=== PATIENT | female | born 1955 ===

== ENCOUNTER 2017-09-29 16:08 | Inpatient (IN) | payer MEDICAID ==
[2017-09-29 16:09] VITALS: BMI 34.2
[2017-09-29] MEDS ORDERED: Naloxone 0.4 mg/ml Inj (Adult) ONE (16:17)
[2017-09-29] MEDS ORDERED: Sodium Chloride 0.9% 1,000 ML IV ONE ×2 (16:22→17:04)
[2017-09-29] MEDS ORDERED: Naloxone 0.4 mg/ml Inj (Adult) IVP STA (16:22)
--- NOTE | 2017-09-29 16:22 | C.PDOC ---
History Of Present Illness HX LIMITED DUE TO CLINICAL CONDITION 62-YEAR-OLD FEMALE, PMHx includes chronic pain, fibromyalgia and lupus on Percocet, IS BROUGHT TO THE EMERGENCY DEPARTMENT FROM PAIN CLINIC. PATIENT APPEARED TO BE OBTUNDED WITH APPARENT NARCOTIC INTOXICATION. NO MEDS WERE GIVEN EN ROUTE. PATIENT HAD PERCOCET PRESCRIPTION FILLED RECENTLY, WHICH WAS EMPTY TODAY. Time Seen by Provider: 09/29/17 16:21 History Per: Patient, EMS Past Medical History Reviewed: Historical Data, Nursing Documentation, Vital Signs Vital Signs: Last Vital Signs Temp 97.9 F 09/29/17 16:22 Pulse 73 09/29/17 16:22 Resp 15 09/29/17 16:22 BP 76/46 L 09/29/17 16:22 Pulse Ox 98 09/29/17 16:22 - Medical History PMH: Anxiety, Asthma, Depression, Diabetes, Fibromyalgia, HTN, Seizures, Chronic Pain Family History: States: No Known Family Hx - Social History Hx Tobacco Use: No Hx Alcohol Use: No Hx Substance Use: No - Immunization History Hx Tetanus Toxoid Vaccination: No Hx Influenza Vaccination: No Hx Pneumococcal Vaccination: No Review Of Systems Review Of Systems: ROS cannot be obtained secondary to pt's inabilty to answer questions. Physical Exam - Physical Exam Appears: Non-toxic, In Acute Distress, Other (SLEEPY BUT AROUSABLE TO DEEP STERNAL RUB. AGONAL) Skin: Warm, Dry, No Rash Head: Atraumatic, Normacephalic Eye(s): bilateral: Other (PINPOINT) Nose: Normal Tongue: Normal Appearing Lips: Normal Appearing Neck: Normal ROM Cardiovascular: Rhythm Regular, No Murmur Respiratory: No Accessory Muscle Use Gastrointestinal/Abdominal: Soft, No Tenderness ED Course And Treatment - Laboratory Results Result Diagrams: 09/29/17 16:47 09/29/17 16:47 ECG: Interpreted By Me ECG Rhythm: Sinus Rhythm ECG Interpretation: Abnormal Interpretation Of ECG: TWI III, AVF Rate From EC Endotracheal Intubation - Endotracheal Intubation Intubated With ETT Size: 7 Blade Type Used: Curved Indication: Airway Protection Intubated: Orally Pre-Intubation Airway Assessment: Ventilated And Oxygenated, Appears To Have A difficult Airway Medications Used During Pre-Intubation: Etomidate Paralyzed With: Succinylcholine Post-Intubation Assessment: ETT Secured AT (cm): (23), Breath Sounds Equal Bilat , Placement Confirmed Via CXR, Color Change W/End Tidal CO2 Detector, Oxygen Saturation: (100) Progress - Re-Evaluation Re-evaluation Note: 09/29/17 16:22 S/P NARCAN 1.6 MG W MIN IMPROVED ALERTNESS. IVF IN PROGRESS 09/29/17 16:30 S/P REPEAT NARCAN, NO IMPROVE. PT W PERSIST HYPOTENSION, DIAPH, POOR RESP EFFORT AND POOR GAG REFLEX. WILL INTUBATE FOR AIRWAY PROTECTION. 09/29/17 16:57 d/w dr Castaneda, R c/f icu aware of er findings will eval 09/29/17 17:[address] ODEN 09/29/17 17:40 DECR O2 SAT AFTER PT MOVEMENT DURING CLEANING. CXR REVIEWED. WILL ETT ADJUST 09/29/17 17:44 ET TUBE IN RIGHT MAINSTEM WITH COMPLETE WHITE OUT OF LEFT - Data Reviewed Data Reviewed: Lab, Diagnostic imaging, EKG, Old records - Critical Care Citical Care: Excluding Proc Time Critical Care Time: 90 minutes - Continuity of Care Discussed patient case with:: On-call PMD-pt unassigned Discussed pt. case with it systems analyst consultant/specialty: Pulmonary/Crit. Care - Scribe Statement The provider has reviewed the documentation as recorded by the Scribe (Jeferson Vincent) All medical record entries made by the Scribe were at my direction and personally dictated by me. I have reviewed the chart and agree that the record accurately reflects my personal performance of the history, physical exam, medical decision making, and the department course for this patient. I have also personally directed, reviewed, and agree with the discharge instructions and disposition.
[2017-09-29 16:57] LABS: BASO % 0.4 % (0.0-2.0); EOS # 0.3 K/uL (0.0-0.7); EOS % 3.3 % (0.0-4.0); HEMOGLOBIN 12.9 g/dL (11.0-16.0); LYMPH # 3.6 K/uL (1.0-4.3); LYMPH % 47.1 % (20.0-40.0); MEAN CELL VOLUME 84.2 fL (81.0-99.0); MEAN CORPUSCULAR HGB CONC 33.3 g/dL (33.0-37.0); MEAN PLATELET VOLUME 7.5 fL (7.2-11.7); MONO # 0.5 K/uL (0.0-0.8); MONO % 6.6 % (0.0-10.0); NEUT # 3.3 K/uL (1.8-7.0); NEUT % 42.6 % (50.0-75.0); NRBC % 0.1 % (0.0-2.0); RBC 4.6 Mil/uL (3.80-5.20); RED CELL DISTRIBUTION WIDTH 15.1 % (11.5-14.5); WHITE BLOOD COUNT 7.7 K/uL (4.8-10.8)
[2017-09-29] MEDS ORDERED: Dexmedetomidine Hydrochloride 200 MCG in Sodium Chloride 0.9% 48 ML IV PRN (17:00)
[2017-09-29] MEDS ORDERED: Etomidate 20 mg/10ml Inj IV ONE (17:00)
[2017-09-29] MEDS ORDERED: Succinylcholine Chloride 20 mg/ml Syr (5 ml) IV STA (17:00)
[2017-09-29] MEDS ORDERED: Midazolam 2 MG/2 ML VIAL IVP ONE (17:14)
[2017-09-29] MEDS ORDERED: Rocuronium 10 mg/ml (5 ml) IV ONE (17:14)
[2017-09-29] MEDS ORDERED: Midazolam 2 MG/2 ML VIAL ONE (17:17)
[2017-09-29 17:22] LABS: ALB/GLOB RATIO 1.1 (1.0-2.1); ALBUMIN 3.8 g/dL (3.5-5.0); ALT/SGPT 89 U/L (9-52); AST/SGOT 56 U/L (14-36); BLOOD UREA NITROGEN 14 mg/dL (7-17); CALCIUM 8.5 mg/dl (8.6-10.4); GFR AFRICAN-AMERICAN > 60; GFR NON-AFRICAN AMERICAN > 60
[2017-09-29 17:23] LABS: ACETAMINOPHEN < 10.0 ug/mL (10.0-30.0); SALICYLATE < 1.0 mg/dL 1
--- NOTE | 2017-09-29 17:52 | CP.PCM.CON ---
<Nunu Castaneda - Last Filed: 09/29/17 17:47> History of Present Illness - History of Present Illness History of Present Illness: 62 y/o female with pmx of chronic pain, fibromyaligia taking benzo and opoids presents to [facility] with respiratory arrest not responsive to narcan. Patietn was intubated in Er. Please see ER notes for events leading to intubation. Limited history 2nd intubation. Review of Systems - Review of Systems All systems: reviewed and no additional remarkable complaints except Review of Systems: Intubated-- limited ROS Past Patient History - Past Medical History & Family History Past Medical History?: Yes - Past Social History Smoking Status: Former Smoker - CARDIAC Hx Hypertension: Yes - PULMONARY Hx Asthma: Yes - NEUROLOGICAL Hx Seizures: Yes - ENDOCRINE/METABOLIC Hx Endocrine Disorders: Yes Hx Diabetes Mellitus Type 2: Yes Hx Systemic Lupus Erythematosus: Yes - MUSCULOSKELETAL/RHEUMATOLOGICAL Hx Musculoskeletal Disorders: Yes - PSYCHIATRIC Hx Anxiety: Yes Hx Depression: Yes Hx Substance Use: No - SURGICAL HISTORY Hx Surgeries: Yes Other/Comment: LUNG BIOPSY. EPIDURAL - ANESTHESIA Hx Anesthesia: Yes Hx Anesthesia Reactions: No Hx Malignant Hyperthermia: No Meds Allergies/Adverse Reactions: Allergies Allergy/AdvReac Type Severity Reaction Status Date / Time lactose Allergy DIARRHEA Verified 09/29/17 16:31 latex Allergy ITCHING Verified 09/29/17 16:31 Penicillins Allergy ITCHING Verified 09/29/17 16:31 contrast Allergy ITCHING Uncoded 09/29/17 16:31 seafood Allergy ITCHING Uncoded 09/29/17 16:31 - Medications Medications: Current Medications Albuterol/Ipratropium (Duoneb 3 Mg/0.5 Mg (3 Ml) Ud) 3 ml INH RQ6 AMISH Bisacodyl (Dulcolax) 10 mg NC HS PRN PRN Reason: Constipation Dexmedetomidine HCl 200 mcg/ (Sodium Chloride) 50 mls @ 5.21 mls/hr IV TITR PRN ; Protocol; 0.2 MCG/KG/HR PRN Reason: Sedation Sodium Chloride (Sodium Chloride 0.9%) 1,000 mls @ 1,000 mls/hr IV .Q1H ONE Stop: 09/29/17 18:03 Physical Exam - Constitutional Appears: No Acute Distress - Head Exam Head Exam: ATRAUMATIC, NORMAL INSPECTION - Eye Exam Eye Exam: Normal appearance - ENT Exam ENT Exam: Mucous Membranes Moist - Neck Exam Neck exam: Positive for: Normal Inspection - Respiratory Exam Respiratory Exam: Clear to Auscultation Bilateral, NORMAL BREATHING PATTERN - Cardiovascular Exam Cardiovascular Exam: REGULAR RHYTHM - GI/Abdominal Exam GI & Abdominal Exam: Soft Additional comments: obese - Extremities Exam Extremities exam: Positive for: normal inspection - Back Exam Back exam: NORMAL INSPECTION - Neurological Exam Additional comments: sedated Results - Vital Signs Recent Vital Signs: Last Vital Signs Temp 97.9 F 09/29/17 16:22 Pulse 73 09/29/17 16:22 Resp 15 09/29/17 16:22 BP 76/46 L 09/29/17 16:22 Pulse Ox 98 09/29/17 16:22 - Labs Result Diagrams: 09/29/17 16:47 09/29/17 16:47 Labs: Laboratory Results - last 24 hr 09/29/17 09/29/17 09/29/17 16:18 16:47 16:47 WBC 7.7 RBC 4.60 Hgb 12.9 Hct 38.8 MCV 84.2 MCH 28.0 MCHC 33.3 RDW 15.1 H Plt Count 245 MPV 7.5 Neut % (Auto) 42.6 L Lymph % (Auto) 47.1 H Buchanan % (Auto) 6.6 Eos % (Auto) 3.3 Baso % (Auto) 0.4 Neut # 3.3 Lymph # 3.6 Buchanan # 0.5 Eos # 0.3 Baso # 0.0 Sodium 132 Potassium 3.2 L Chloride 100 Carbon Dioxide 23 Anion Gap 13 BUN 14 Creatinine 0.8 Est GFR ( Amer) > 60 Est GFR (Non-Af Amer) > 60 POC Glucose (mg/dL) 204 H Random Glucose 165 H Calcium 8.5 L Total Bilirubin 0.7 AST 56 H ALT 89 H D Alkaline Phosphatase 159 H Total Protein 7.3 Albumin 3.8 Globulin 3.5 Albumin/Globulin Ratio 1.1 Salicylates Acetaminophen Alcohol, Quantitative < 10 09/29/17 16:47 WBC RBC Hgb Hct MCV MCH MCHC RDW Plt Count MPV Neut % (Auto) Lymph % (Auto) Buchanan % (Auto) Eos % (Auto) Baso % (Auto) Neut # Lymph # Buchanan # Eos # Baso # Sodium Potassium Chloride Carbon Dioxide Anion Gap BUN Creatinine Est GFR ( Amer) Est GFR (Non-Af Amer) POC Glucose (mg/dL) Random Glucose Calcium Total Bilirubin AST ALT Alkaline Phosphatase Total Protein Albumin Globulin Albumin/Globulin Ratio Salicylates < 1.0 Acetaminophen < 10.0 L Alcohol, Quantitative Assessment & Plan (1) Respiratory failure with hypoxia and hypercapnia Status: Acute (2) Altered mental status Status: Acute - Assessment and Plan (Free Text) Plan: Hypercapneic respiratory failuer:continue ventilation to keep sPo2 >92 and pH b/ w 7.35-7.45, continue bronchodilators -AMS: check Utox and Ct head -Ng tube -DVT ppx scds/hepairn SC is CT head neg for ICh -PUD ppx protonix -check and replace electrolytes -sedation precedex multiple diagnostic tests pendiing. Prognosis limited 2nd limited study. - Date & Time Date: 09/29/17 Time: 17:55 <Maryan Cross - Last Filed: 09/29/17 18:35> Meds - Medications Medications: Current Medications Albuterol/Ipratropium (Duoneb 3 Mg/0.5 Mg (3 Ml) Ud) 3 ml INH RQ6 AMISH Bisacodyl (Dulcolax) 10 mg NC HS PRN PRN Reason: Constipation Dexmedetomidine HCl 200 mcg/ (Sodium Chloride) 50 mls @ 5.21 mls/hr IV TITR PRN ; Protocol; 0.2 MCG/KG/HR PRN Reason: Sedation Aztreonam 2 gm/ Sodium (Chloride) 100 mls @ 200 mls/hr IVPB Q8H AMISH Vancomycin/Sodium Chloride (Vancomycin 1 Gm/Ns 200 Ml) 1 gm in 200 mls @ 133 mls/hr IVPB ONCE ONE Stop: 09/29/17 20:30 Metronidazole (Flagyl) 500 mg in 100 mls @ 100 mls/hr IVPB Q8 AMISH Potassium Chloride (Potassium Chloride 20 Meq/100 Ml) 20 meq in 100 mls @ 50 mls/hr IVPB Q2H AMISH Stop: 09/30/17 00:29 Results - Vital Signs Recent Vital Signs: Last Vital Signs Temp 97.9 F 09/29/17 16:22 Pulse 73 09/29/17 16:22 Resp 15 09/29/17 16:22 BP 76/46 L 09/29/17 16:22 Pulse Ox 98 09/29/17 16:22 - Labs Result Diagrams: 09/29/17 16:47 09/29/17 16:47 Labs: Laboratory Results - last 24 hr 09/29/17 09/29/17 09/29/17 16:18 16:47 16:47 WBC 7.7 RBC 4.60 Hgb 12.9 Hct 38.8 MCV 84.2 MCH 28.0 MCHC 33.3 RDW 15.1 H Plt Count 245 MPV 7.5 Neut % (Auto) 42.6 L Lymph % (Auto) 47.1 H Buchanan % (Auto) 6.6 Eos % (Auto) 3.3 Baso % (Auto) 0.4 Neut # 3.3 Lymph # 3.6 Buchanan # 0.5 Eos # 0.3 Baso # 0.0 Puncture Site pCO2 pO2 HCO3 ABG pH ABG Total CO2 ABG O2 Saturation ABG Base Excess Mike Test ABG Potassium A-a O2 Difference Respiratory Index Glucose Lactate Vent Mode Mechanical Rate FiO2 Tidal Volume PEEP Sodium 132 Potassium 3.2 L Chloride 100 Carbon Dioxide 23 Anion Gap 13 BUN 14 Creatinine 0.8 Est GFR ( Amer) > 60 Est GFR (Non-Af Amer) > 60 POC Glucose (mg/dL) 204 H Random Glucose 165 H Calcium 8.5 L Total Bilirubin 0.7 AST 56 H ALT 89 H D Alkaline Phosphatase 159 H Total Protein 7.3 Albumin 3.8 Globulin 3.5 Albumin/Globulin Ratio 1.1 Arterial Blood Potassium Salicylates Acetaminophen Alcohol, Quantitative < 10 09/29/17 09/29/17 16:47 18:00 WBC RBC Hgb Hct MCV MCH MCHC RDW Plt Count MPV Neut % (Auto) Lymph % (Auto) Buchanan % (Auto) Eos % (Auto) Baso % (Auto) Neut # Lymph # Buchanan # Eos # Baso # Puncture Site Rra pCO2 43 pO2 193 H HCO3 24.0 ABG pH 7.36 ABG Total CO2 25.6 ABG O2 Saturation 98.8 H ABG Base Excess -1.3 Mike Test Yes ABG Potassium 2.7 L A-a O2 Difference 324.0 Respiratory Index 1.7 Glucose 120 H Lactate 1.3 Vent Mode Prvc Mechanical Rate 18 FiO2 80.0 Tidal Volume 450 PEEP 5 Sodium 141.0 Potassium Chloride 111.0 H Carbon Dioxide Anion Gap BUN Creatinine Est GFR ( Amer) Est GFR (Non-Af Amer) POC Glucose (mg/dL) Random Glucose Calcium Total Bilirubin AST ALT Alkaline Phosphatase Total Protein Albumin Globulin Albumin/Globulin Ratio Arterial Blood Potassium 2.7 L Salicylates < 1.0 Acetaminophen < 10.0 L Alcohol, Quantitative Assessment & Plan - Assessment and Plan (Free Text) Assessment: 62F with PMH of Chronic pain, fibromyalgia taking benzodiazepine and opioids presents to [facility] with respiratory arrest not responsive to narcan. Patient was intubated in ER. Patient to be brought to ICU on PRVC. 62F present with AMS, hypercapneic respiratory failure and intubated in the ER Neuro AMS UDS CT head w/o contrast Sedation Precedex UDS drug test Oxycodon screen Cardio EKG BNP Pulm: 09/29 CXR: GI: AST/ALT 56/89 ALP 159 ID Lactic acid 09/29 ABG pH7.36, pCO2 43, pO2 193, pHCO3 24.0, lactate 1.3, PRVC 18 FiO2 80%, TV 450, PEEP 5 Metronidazole 500mg IVPB Q8H Vancomycin 1gm Q24h prophylaxis: GI protonix DVT heparin SC, SCDs
[2017-09-29] MEDS ORDERED: Vancomycin 1 GM 1 GM/250 ML BAG IVPB STA (17:59)
--- NOTE | 2017-09-29 18:13 | RAD ---
HISTORY: SP ETT ADJUST COMPARISON: Chest x-ray performed 09/29/17 TECHNIQUE: Chest, one view. FINDINGS: Endotracheal tube terminates approximately 2.5 cm above the liliya. Nasogastric tube extends to the expected location of the stomach. Examination limited by habitus and hypoinflation. LUNGS: No focal consolidation. Please note that chest x-ray has limited sensitivity for the detection of pulmonary masses. PLEURA: No significant pleural effusion identified. No definite pneumothorax . CARDIOVASCULAR: Heart size appears top normal. Atherosclerotic calcifications of the aorta. OSSEOUS STRUCTURES: No acute osseous abnormality identified. VISUALIZED UPPER ABDOMEN: Unremarkable. OTHER FINDINGS: None. IMPRESSION: Endotracheal tube terminates approximately 2.5 cm above the liliya. Nasogastric tube extends to the expected location of the stomach.
[2017-09-29] MEDS ORDERED: Propofol 10 mg/ml 1,000 MG/100 ML VIAL ONE (18:17)
[2017-09-29 18:22] LABS: ABG ALLEN TEST YES; ARTERIAL BLOOD GAS O2 SAT 98.8 % (95-98); ARTERIAL BLOOD GAS PCO2 43 mm/Hg (35-45); ARTERIAL BLOOD GAS PH 7.36 (7.35-7.45); ARTERIAL BLOOD GAS PO2 193 mm/Hg (80-100); ARTERIAL BLOOD GAS TCO2 25.6 mmol/L (22-28)
[2017-09-29] MEDS ORDERED: Propofol 10 mg/ml Inj (20 ML) IV ONE (18:36)
[2017-09-29] MEDS ORDERED: Propofol 10 mg/ml 1,000 MG/100 ML VIAL IV PRN (18:39)
[2017-09-29] MEDS ORDERED: Vancomycin 1 gm/NS 200 ml 1 GM/200 ML BAG IVPB ONE (19:00)
--- NOTE | 2017-09-29 19:05 | CT ---
PROCEDURE: CT HEAD WITHOUT CONTRAST. HISTORY: eval AMS COMPARISON: None available. TECHNIQUE: Axial computed tomography images were obtained through the head/brain without intravenous contrast. Radiation dose: Total exam DLP = 975.52 mGy-cm. This CT exam was performed using one or more of the following dose reduction techniques: Automated exposure control, adjustment of the mA and/or kV according to patient size, and/or use of iterative reconstruction technique. FINDINGS: HEMORRHAGE: No intracranial hemorrhage. BRAIN: No mass effect or edema. The leach-white matter differentiation appears intact. Please note that MRI with diffusion imaging is more sensitive in the detection of acute ischemic event. VENTRICLES: No hydrocephalus. CALVARIUM: Unremarkable. PARANASAL SINUSES: Mucosal thickening of the ethmoid air cells. MASTOID AIR CELLS: Unremarkable as visualized. No inflammatory changes. OTHER FINDINGS: Probable proptosis bilaterally. IMPRESSION: No acute intracranial pathology identified. Probable proptosis bilaterally Mucosal thickening of the ethmoid air cells. Correlate for sinusitis.
[2017-09-29 20:12] LABS: MAGNESIUM 1.5 mg/dL (1.6-2.3)
[2017-09-29 20:21] LABS: TROPONIN I 0.013 ng/mL (0.00-0.120)
[2017-09-29 20:22] LABS: PHENCYCLIDINE, UR NEGATIVE (NEGATIVE)
[2017-09-29 20:24] LABS: BARBITURATES, UR POSITIVE (NEGATIVE); BENZODIAZEPINES, UR POSITIVE (NEGATIVE); OPIATES, UR POSITIVE (NEGATIVE)
[2017-09-29] MEDS: Albuterol-Ipratrop 3 mg / 0.5 (3 ml) UD INH SCH (21:03)
[2017-09-29] MEDS: Aztreonam 2 GM in Sodium Chloride 0.9% 100 ML IVPB SCH (21:14)
[2017-09-29] MEDS: Magnesium Sulfate 1 gm in D5W 1 GM/100 ML BAG IVPB SCH ×2 (21:15→23:13)
[2017-09-29] MEDS: metroNIDAZOLE IV 500 mg/100 ml 500 MG/100 ML BAG IVPB SCH (22:13)
[2017-09-29] MEDS ORDERED: Magnesium Sulfate 1 gm in D5W 1 GM/100 ML BAG IVPB SCH (23:00)
--- NOTE | 2017-09-29 23:35 | CP.PCM.HP ---
History of Present Illness - History of Present Illness History of Present Illness: CC: Altered mental status HPI: 62 y/o obese female with pmx of chronic pain, polysubstance abuse , fibromyaligia taking benzo and opoids presents to [facility] with respiratory arrest not responsive to narcan. Patietn was intubated in Er. Please see ER notes for events leading to intubation. Limited history 2nd intubation, Pt had heroine over dose. There is no other h/o available. there is h/o previous multiple hospitalizations Present on Admission - Present on Admission Any Indicators Present on Admission: Yes Review of Systems - Review of Systems Systems not reviewed;Unavailable: Respiratory Distress, Altered Mental Status, Intubated - Constitutional Constitutional: Lethargy, Malaise - EENT Eyes: absent: As Per HPI, Blind Spots, Blurred Vision, Change in Vision, Decreased Night Vision, Diplopia, Discharge, Dry Eye, Exophthalmos, Floaters, Irritation, Itchy Eyes, Loss of Peripheral Vision, Pain, Photophobia, Requires Corrective Lenses, Sees Flashes, Spots in Vision, Tunnel Vision, Other Visual Disturbances, Loss of Vision, Other Nose/Mouth/Throat: absent: As Per HPI, Epistaxis, Nasal Congestion, Nasal Discharge, Nasal Obstruction, Nasal Trauma, Nose Pain, Post Nasal Drip, Sinus Pain, Sinus Pressure, Bleeding Gums, Change in Voice, Dental Pain, Dry Mouth, Dysphagia, Halitosis, Hoarsness, Lip Swelling, Mouth Lesions, Mouth Pain, Odynophagia, Sore Throat, Throat Swelling, Tongue Swelling, Facial Pain, Neck Pain, Neck Mass, Other Past Patient History - Past Medical History & Family History Past Medical History?: Yes - Past Social History Smoking Status: Never Smoked - CARDIAC Hx Hypertension: Yes - PULMONARY Hx Asthma: Yes - NEUROLOGICAL Hx Seizures: Yes - ENDOCRINE/METABOLIC Hx Endocrine Disorders: Yes Hx Diabetes Mellitus Type 2: Yes Hx Systemic Lupus Erythematosus: Yes - MUSCULOSKELETAL/RHEUMATOLOGICAL Hx Musculoskeletal Disorders: Yes Hx Falls: No - PSYCHIATRIC Hx Anxiety: Yes Hx Depression: Yes Hx Substance Use: No - SURGICAL HISTORY Hx Surgeries: Yes Other/Comment: LUNG BIOPSY. EPIDURAL - ANESTHESIA Hx Anesthesia: Yes Hx Anesthesia Reactions: No Hx Malignant Hyperthermia: No Has any member of the family had a problem w/ anesthesia?: No Meds Allergies/Adverse Reactions: Allergies Allergy/AdvReac Type Severity Reaction Status Date / Time lactose Allergy DIARRHEA Verified 09/29/17 16:31 latex Allergy ITCHING Verified 09/29/17 16:31 Penicillins Allergy ITCHING Verified 09/29/17 16:31 contrast Allergy ITCHING Uncoded 09/29/17 16:31 seafood Allergy ITCHING Uncoded 09/29/17 16:31 Physical Exam - Constitutional Appears: In Acute Distress Additional comments: pt is intubated - Eye Exam Eye Exam: EOMI, Normal appearance Additional comments: pinpoint pupil - ENT Exam ENT Exam: Mucous Membranes Moist, Normal Exam - Respiratory Exam Respiratory Exam: Decreased Breath Sounds - Cardiovascular Exam Cardiovascular Exam: Tachycardia, +S1, +S2 - Neurological Exam Additional comments: withdraws from pain Results - Vital Signs Recent Vital Signs: Last Vital Signs Temp 97.8 F 09/29/17 22:00 Pulse 87 09/29/17 22:00 Resp 20 09/29/17 22:00 BP 133/75 09/29/17 22:00 Pulse Ox 100 09/29/17 22:00 - Labs Result Diagrams: 09/29/17 16:47 09/29/17 16:47 Labs: Laboratory Results - last 24 hr 09/29/17 09/29/17 09/29/17 16:18 16:47 16:47 WBC 7.7 RBC 4.60 Hgb 12.9 Hct 38.8 MCV 84.2 MCH 28.0 MCHC 33.3 RDW 15.1 H Plt Count 245 MPV 7.5 Neut % (Auto) 42.6 L Lymph % (Auto) 47.1 H Keith % (Auto) 6.6 Eos % (Auto) 3.3 Baso % (Auto) 0.4 Neut # 3.3 Lymph # 3.6 Keith # 0.5 Eos # 0.3 Baso # 0.0 Puncture Site pCO2 pO2 HCO3 ABG pH ABG Total CO2 ABG O2 Saturation ABG Base Excess Mike Test ABG Potassium A-a O2 Difference Respiratory Index Glucose Lactate Vent Mode Mechanical Rate FiO2 Tidal Volume PEEP Sodium 132 Potassium 3.2 L Chloride 100 Carbon Dioxide 23 Anion Gap 13 BUN 14 Creatinine 0.8 Est GFR ( Amer) > 60 Est GFR (Non-Af Amer) > 60 POC Glucose (mg/dL) 204 H Random Glucose 165 H Lactic Acid Calcium 8.5 L Phosphorus Magnesium Total Bilirubin 0.7 AST 56 H ALT 89 H D Alkaline Phosphatase 159 H Troponin I NT-Pro-B Natriuret Pep Total Protein 7.3 Albumin 3.8 Globulin 3.5 Albumin/Globulin Ratio 1.1 Arterial Blood Potassium Salicylates Urine Opiates Screen Urine Methadone Screen Acetaminophen Ur Barbiturates Screen Ur Phencyclidine Scrn Ur Amphetamines Screen U Benzodiazepines Scrn U Oth Cocaine Metabols U Cannabinoids Screen Alcohol, Quantitative < 10 09/29/17 09/29/17 09/29/17 16:47 18:00 19:52 WBC RBC Hgb Hct MCV MCH MCHC RDW Plt Count MPV Neut % (Auto) Lymph % (Auto) Keith % (Auto) Eos % (Auto) Baso % (Auto) Neut # Lymph # Keith # Eos # Baso # Puncture Site Rra pCO2 43 pO2 193 H HCO3 24.0 ABG pH 7.36 ABG Total CO2 25.6 ABG O2 Saturation 98.8 H ABG Base Excess -1.3 Mike Test Yes ABG Potassium 2.7 L A-a O2 Difference 324.0 Respiratory Index 1.7 Glucose 120 H Lactate 1.3 Vent Mode Prvc Mechanical Rate 18 FiO2 80.0 Tidal Volume 450 PEEP 5 Sodium 141.0 Potassium Chloride 111.0 H Carbon Dioxide Anion Gap BUN Creatinine Est GFR ( Amer) Est GFR (Non-Af Amer) POC Glucose (mg/dL) Random Glucose Lactic Acid Calcium Phosphorus Magnesium Total Bilirubin AST ALT Alkaline Phosphatase Troponin I NT-Pro-B Natriuret Pep Total Protein Albumin Globulin Albumin/Globulin Ratio Arterial Blood Potassium 2.7 L Salicylates < 1.0 Urine Opiates Screen Positive H Urine Methadone Screen Negative Acetaminophen < 10.0 L Ur Barbiturates Screen Positive H Ur Phencyclidine Scrn Negative Ur Amphetamines Screen Negative U Benzodiazepines Scrn Positive U Oth Cocaine Metabols Negative U Cannabinoids Screen Negative Alcohol, Quantitative 09/29/17 09/29/17 19:52 19:52 WBC RBC Hgb Hct MCV MCH MCHC RDW Plt Count MPV Neut % (Auto) Lymph % (Auto) Keith % (Auto) Eos % (Auto) Baso % (Auto) Neut # Lymph # Keith # Eos # Baso # Puncture Site pCO2 pO2 HCO3 ABG pH ABG Total CO2 ABG O2 Saturation ABG Base Excess Mike Test ABG Potassium A-a O2 Difference Respiratory Index Glucose Lactate Vent Mode Mechanical Rate FiO2 Tidal Volume PEEP Sodium Potassium Chloride Carbon Dioxide Anion Gap BUN Creatinine Est GFR ( Amer) Est GFR (Non-Af Amer) POC Glucose (mg/dL) Random Glucose Lactic Acid 1.0 Calcium Phosphorus 3.9 Magnesium 1.5 L Total Bilirubin AST ALT Alkaline Phosphatase Troponin I 0.0130 NT-Pro-B Natriuret Pep 49.0 Total Protein Albumin Globulin Albumin/Globulin Ratio Arterial Blood Potassium Salicylates Urine Opiates Screen Urine Methadone Screen Acetaminophen Ur Barbiturates Screen Ur Phencyclidine Scrn Ur Amphetamines Screen U Benzodiazepines Scrn U Oth Cocaine Metabols U Cannabinoids Screen Alcohol, Quantitative Assessment & Plan (1) Heroin abuse Status: Acute (2) Altered mental status Status: Acute (3) Respiratory failure with hypoxia and hypercapnia Status: Acute
--- NOTE | 2017-09-30 00:42 | PCM.PROC ---
Procedures Attestation:: I certify that I have explained the specified Operation(s) or Procedure(s), risks, benefits and reasonable alternatives to the Patient and/or other person responsible. The opportunity was given to ask questions and all questions answered - Extubation Clinical Parameters: Resolution/Stabilization of disease process, Hemodynamically Stable, Intact Cough/Gag Reflex, Spontaneous Respirations, Acceptable Vent Settings (FIO2<50%, PEEP<8, PaO2>75, pH>7.25) Weaning Criteria Met: Yes General Weaning Approaches: Pressure Support Ventilation (PSV) Weaning Patient Condition: Patient has been successfully extubated and assessed Oxygen Therapy: O2 via Aerosol Mask Patient Tolerated Procedure: Well, No Complications
[2017-09-30] MEDS: Albuterol-Ipratrop 3 mg / 0.5 (3 ml) UD INH SCH ×3 (01:30→13:41)
[2017-09-30] MEDS: Aztreonam 2 GM in Sodium Chloride 0.9% 100 ML IVPB SCH (02:44)
[2017-09-30] MEDS: metroNIDAZOLE IV 500 mg/100 ml 500 MG/100 ML BAG IVPB SCH (05:45)
[2017-09-30 06:21] LABS: BASO % 0.5 % (0.0-2.0); EOS # 0.1 K/uL (0.0-0.7); HEMOGLOBIN 12.8 g/dL (11.0-16.0); LYMPH # 2.1 K/uL (1.0-4.3); LYMPH % 21.9 % (20.0-40.0); MEAN CELL VOLUME 83.4 fL (81.0-99.0); MEAN CORPUSCULAR HEMOGLOBIN 28.7 pg (27.0-31.0); MEAN CORPUSCULAR HGB CONC 34.5 g/dL (33.0-37.0); MEAN PLATELET VOLUME 7.4 fL (7.2-11.7); MONO # 0.6 K/uL (0.0-0.8); NEUT # 6.8 K/uL (1.8-7.0); NEUT % 70.6 % (50.0-75.0); RBC 4.45 Mil/uL (3.80-5.20); RED CELL DISTRIBUTION WIDTH 14.7 % (11.5-14.5); WHITE BLOOD COUNT 9.7 K/uL (4.8-10.8)
[2017-09-30 06:45] LABS: ALBUMIN 3.5 g/dL (3.5-5.0); ALT/SGPT 76 U/L (9-52); AST/SGOT 43 U/L (14-36); BLOOD UREA NITROGEN 8 mg/dL (7-17); CALCIUM 8.1 mg/dl (8.6-10.4); GFR AFRICAN-AMERICAN > 60; GFR NON-AFRICAN AMERICAN > 60; MAGNESIUM 1.8 mg/dL (1.6-2.3)
[2017-09-30] MEDS: (Novolin R) Insulin Human Regular 100 units/ml vial SC SCH ×2 (09:14→11:53)
[2017-09-30 12:12] VITALS: TEMP 100.1
[2017-09-30] MEDS ORDERED: Oxycodone/Acetaminophen 5/325 mg Tab PO PRN (13:33)
[2017-09-30] MEDS ORDERED: Apap-Butalbital-Caffeine 325-50-40mg Tab PO PRN (13:34)
--- NOTE | 2017-09-30 14:24 | CP.CCUPN ---
<Krystal Castano - Last Filed: 09/30/17 14:21> CCU Subjective - Physician Review Subjective (Free Text): 09/30/17 14:21 Patient seen and examined at bedside. Patient resting comfortbaly in bed with no new complaints at this time. Patient is saying she is ready to go home today. CCU Objective - Vital Signs / Intake & Output Vital Signs (Last 4 hours): Vital Signs Temp Pulse Resp BP 09/30/17 12:10 125 H 14 110/64 09/30/17 12:09 126 H 09/30/17 12:00 100.1 F H 09/30/17 11:15 119 H 21 118/63 09/30/17 11:03 127 H 26 H 09/30/17 10:45 136 H 25 H Intake and Output (Last 8hrs): Intake & Output 09/29/17 09/30/17 09/30/17 22:59 06:59 14:59 Intake Total 670.4 268.7 370 Output Total 300 650 175 Balance 370.4 -381.3 195 Weight 230 lb 222 lb 8 oz Intake: Intake, IV Amount 670.4 218.7 30 LEFT ANTECUBITAL 2ND PORT 200 100 Left Antecubital 233 100 10 Right Forearm 200 10 Right Upper arm 37.4 18.7 10 Oral 50 340 Output: Urine 300 650 175 Urethral (Rangel) 300 650 125 Urine, Voided 50 Stool 0 Other: Voiding Method Indwelling Catheter # Voids Urine, Voided 1 # Bowel Movements 0 1 - Physical Exam Head: Positive for: Atraumatic, Normocephalic Pupils: Positive for: PERRL Extroacular Muscles: Positive for: EOMI Conjunctiva: Positive for: Normal Mouth: Positive for: Moist Mucous Membranes Respiratory/Chest: Positive for: Clear to Auscultation, Good Air Exchange. Negative for: Respiratory Distress, Accessory Muscle Use Cardiovascular: Positive for: Regular Rate and Rhythm, Normal S1, S2 Abdomen: Positive for: Normal Bowel Sounds. Negative for: Tenderness, Distention, Peritoneal Signs Upper Extremity: Positive for: Normal Inspection Lower Extremity: Positive for: Normal Inspection Neurological: Positive for: GCS=15 Skin: Positive for: Warm, Dry, Normal Color Psychiatric: Positive for: Alert, Oriented x 3, Normal Insight, Normal Concentration - Medications Active Medications: Active Medications Generic Name Dose Route Start Last Admin Trade Name Freq PRN Reason Stop Dose Admin Acetaminophen 650 mg 09/30/17 09:51 09/30/17 10:16 Tylenol 325mg Tab PO 650 mg Q6 PRN Administration Pain, moderate (4-7) Acetaminophen/Butalbital/Caffeine 1 tab 09/30/17 13:34 Fioricet PO Q8 PRN Headache Albuterol/Ipratropium 3 ml 09/29/17 20:00 09/30/17 13:41 Duoneb 3 Mg/0.5 Mg (3 Ml) Ud INH 3 ml RQ6 AMISH Administration Bisacodyl 10 mg 09/29/17 17:03 Dulcolax OH HS PRN Constipation Insulin Aspart 15 unit 09/30/17 16:30 Novolog SC ACHS AMISH Insulin Glargine 30 unit 09/30/17 18:00 Lantus SC BID AMISH Insulin Human Regular 0 unit 09/30/17 07:30 09/30/17 11:53 Novolin R SC 8 unit ACHS AMISH Administration Protocol Oxycodone/Acetaminophen 2 tab 09/30/17 13:33 Percocet 5/325 Mg Tab PO 10/03/17 13:34 Q6H PRN Pain, severe (8-10) Pantoprazole Sodium 40 mg 10/01/17 10:00 Protonix Ec Tab PO DAILY AMISH - Patient Studies Lab Studies: Lab Studies 09/30/17 09/30/17 09/30/17 Range/Units 11:44 06:11 06:11 WBC 9.7 (4.8-10.8) K/uL RBC 4.45 (3.80-5.20) Mil/uL Hgb 12.8 (11.0-16.0) g/dL Hct 37.1 (34.0-47.0) % MCV 83.4 (81.0-99.0) fL MCH 28.7 (27.0-31.0) pg MCHC 34.5 (33.0-37.0) g/dL RDW 14.7 H (11.5-14.5) % Plt Count 225 (130-400) K/uL MPV 7.4 (7.2-11.7) fL Neut % (Auto) 70.6 (50.0-75.0) % Lymph % (Auto) 21.9 (20.0-40.0) % Hart % (Auto) 6.0 (0.0-10.0) % Eos % (Auto) 1.0 (0.0-4.0) % Baso % (Auto) 0.5 (0.0-2.0) % Neut # 6.8 (1.8-7.0) K/uL Lymph # 2.1 (1.0-4.3) K/uL Hart # 0.6 (0.0-0.8) K/uL Eos # 0.1 (0.0-0.7) K/uL Baso # 0.0 (0.0-0.2) K/uL Puncture Site pCO2 (35-45) mm/Hg pO2 (80-100) mm/Hg HCO3 (21-28) mmol/L ABG pH (7.35-7.45) ABG Total CO2 (22-28) mmol/L ABG O2 Saturation (95-98) % ABG Base Excess (-2.0-3.0) mmol/L Mike Test ABG Potassium (3.6-5.2) mmol/L A-a O2 Difference mm/Hg Respiratory Index Glucose (65-105) mg/dl Lactate (0.7-2.1) mmol/L Vent Mode Mechanical Rate FiO2 % Tidal Volume PEEP Sodium 135 (132-148) mmol/L Potassium 4.2 (3.6-5.2) mmol/L Chloride 103 (98-107) mmol/L Carbon Dioxide 24 (22-30) mmol/L Anion Gap 12 (10-20) BUN 8 (7-17) mg/dL Creatinine 0.5 L (0.7-1.2) mg/dL Est GFR ( Amer) > 60 Est GFR (Non-Af Amer) > 60 POC Glucose (mg/dL) 397 H (65-110) mg/dL Random Glucose 265 H (65-105) mg/dL Lactic Acid (0.7-2.1) mmol/L Calcium 8.1 L (8.6-10.4) mg/dl Phosphorus 2.9 (2.5-4.5) mg/dL Magnesium 1.8 (1.6-2.3) mg/dL Total Bilirubin 0.9 (0.2-1.3) mg/dL AST 43 H D (14-36) U/L ALT 76 H (9-52) U/L Alkaline Phosphatase 175 H (38-126) U/L Troponin I (0.00-0.120) ng/mL NT-Pro-B Natriuret Pep (0-900) pg/mL Total Protein 6.9 (6.3-8.3) g/dL Albumin 3.5 (3.5-5.0) g/dL Globulin 3.4 (2.2-3.9) gm/dL Albumin/Globulin Ratio 1.0 (1.0-2.1) Arterial Blood Potassium (3.6-5.2) mmol/L Salicylates mg/dL 1 Urine Opiates Screen (NEGATIVE) Urine Methadone Screen (NEGATIVE) Acetaminophen (10.0-30.0) ug/mL Ur Barbiturates Screen (NEGATIVE) Ur Phencyclidine Scrn (NEGATIVE) Ur Amphetamines Screen (NEGATIVE) U Benzodiazepines Scrn (NEGATIVE) U Oth Cocaine Metabols (NEGATIVE) U Cannabinoids Screen (NEGATIVE) Alcohol, Quantitative (0-10) mg/dl 09/30/17 09/30/17 09/29/17 Range/Units 06:02 00:11 19:52 WBC (4.8-10.8) K/uL RBC (3.80-5.20) Mil/uL Hgb (11.0-16.0) g/dL Hct (34.0-47.0) % MCV (81.0-99.0) fL MCH (27.0-31.0) pg MCHC (33.0-37.0) g/dL RDW (11.5-14.5) % Plt Count (130-400) K/uL MPV (7.2-11.7) fL Neut % (Auto) (50.0-75.0) % Lymph % (Auto) (20.0-40.0) % Hart % (Auto) (0.0-10.0) % Eos % (Auto) (0.0-4.0) % Baso % (Auto) (0.0-2.0) % Neut # (1.8-7.0) K/uL Lymph # (1.0-4.3) K/uL Hart # (0.0-0.8) K/uL Eos # (0.0-0.7) K/uL Baso # (0.0-0.2) K/uL Puncture Site pCO2 (35-45) mm/Hg pO2 (80-100) mm/Hg HCO3 (21-28) mmol/L ABG pH (7.35-7.45) ABG Total CO2 (22-28) mmol/L ABG O2 Saturation (95-98) % ABG Base Excess (-2.0-3.0) mmol/L Mike Test ABG Potassium (3.6-5.2) mmol/L A-a O2 Difference mm/Hg Respiratory Index Glucose (65-105) mg/dl Lactate (0.7-2.1) mmol/L Vent Mode Mechanical Rate FiO2 % Tidal Volume PEEP Sodium (132-148) mmol/L Potassium (3.6-5.2) mmol/L Chloride (98-107) mmol/L Carbon Dioxide (22-30) mmol/L Anion Gap (10-20) BUN (7-17) mg/dL Creatinine (0.7-1.2) mg/dL Est GFR ( Amer) Est GFR (Non-Af Amer) POC Glucose (mg/dL) 251 H 188 H (65-110) mg/dL Random Glucose (65-105) mg/dL Lactic Acid 1.0 (0.7-2.1) mmol/L Calcium (8.6-10.4) mg/dl Phosphorus (2.5-4.5) mg/dL Magnesium (1.6-2.3) mg/dL Total Bilirubin (0.2-1.3) mg/dL AST (14-36) U/L ALT (9-52) U/L Alkaline Phosphatase (38-126) U/L Troponin I (0.00-0.120) ng/mL NT-Pro-B Natriuret Pep (0-900) pg/mL Total Protein (6.3-8.3) g/dL Albumin (3.5-5.0) g/dL Globulin (2.2-3.9) gm/dL Albumin/Globulin Ratio (1.0-2.1) Arterial Blood Potassium (3.6-5.2) mmol/L Salicylates mg/dL 1 Urine Opiates Screen (NEGATIVE) Urine Methadone Screen (NEGATIVE) Acetaminophen (10.0-30.0) ug/mL Ur Barbiturates Screen (NEGATIVE) Ur Phencyclidine Scrn (NEGATIVE) Ur Amphetamines Screen (NEGATIVE) U Benzodiazepines Scrn (NEGATIVE) U Oth Cocaine Metabols (NEGATIVE) U Cannabinoids Screen (NEGATIVE) Alcohol, Quantitative (0-10) mg/dl 09/29/17 09/29/17 09/29/17 Range/Units 19:52 19:52 18:00 WBC (4.8-10.8) K/uL RBC (3.80-5.20) Mil/uL Hgb (11.0-16.0) g/dL Hct (34.0-47.0) % MCV (81.0-99.0) fL MCH (27.0-31.0) pg MCHC (33.0-37.0) g/dL RDW (11.5-14.5) % Plt Count (130-400) K/uL MPV (7.2-11.7) fL Neut % (Auto) (50.0-75.0) % Lymph % (Auto) (20.0-40.0) % Hart % (Auto) (0.0-10.0) % Eos % (Auto) (0.0-4.0) % Baso % (Auto) (0.0-2.0) % Neut # (1.8-7.0) K/uL Lymph # (1.0-4.3) K/uL Hart # (0.0-0.8) K/uL Eos # (0.0-0.7) K/uL Baso # (0.0-0.2) K/uL Puncture Site Rra pCO2 43 (35-45) mm/Hg pO2 193 H (80-100) mm/Hg HCO3 24.0 (21-28) mmol/L ABG pH 7.36 (7.35-7.45) ABG Total CO2 25.6 (22-28) mmol/L ABG O2 Saturation 98.8 H (95-98) % ABG Base Excess -1.3 (-2.0-3.0) mmol/L Mike Test Yes ABG Potassium 2.7 L (3.6-5.2) mmol/L A-a O2 Difference 324.0 mm/Hg Respiratory Index 1.7 Glucose 120 H (65-105) mg/dl Lactate 1.3 (0.7-2.1) mmol/L Vent Mode Prvc Mechanical Rate 18 FiO2 80.0 % Tidal Volume 450 PEEP 5 Sodium 141.0 (132-148) mmol/L Potassium (3.6-5.2) mmol/L Chloride 111.0 H (98-107) mmol/L Carbon Dioxide (22-30) mmol/L Anion Gap (10-20) BUN (7-17) mg/dL Creatinine (0.7-1.2) mg/dL Est GFR ( Amer) Est GFR (Non-Af Amer) POC Glucose (mg/dL) (65-110) mg/dL Random Glucose (65-105) mg/dL Lactic Acid (0.7-2.1) mmol/L Calcium (8.6-10.4) mg/dl Phosphorus 3.9 (2.5-4.5) mg/dL Magnesium 1.5 L (1.6-2.3) mg/dL Total Bilirubin (0.2-1.3) mg/dL AST (14-36) U/L ALT (9-52) U/L Alkaline Phosphatase (38-126) U/L Troponin I 0.0130 (0.00-0.120) ng/mL NT-Pro-B Natriuret Pep 49.0 (0-900) pg/mL Total Protein (6.3-8.3) g/dL Albumin (3.5-5.0) g/dL Globulin (2.2-3.9) gm/dL Albumin/Globulin Ratio (1.0-2.1) Arterial Blood Potassium 2.7 L (3.6-5.2) mmol/L Salicylates mg/dL 1 Urine Opiates Screen Positive H (NEGATIVE) Urine Methadone Screen Negative (NEGATIVE) Acetaminophen (10.0-30.0) ug/mL Ur Barbiturates Screen Positive H (NEGATIVE) Ur Phencyclidine Scrn Negative (NEGATIVE) Ur Amphetamines Screen Negative (NEGATIVE) U Benzodiazepines Scrn Positive (NEGATIVE) U Oth Cocaine Metabols Negative (NEGATIVE) U Cannabinoids Screen Negative (NEGATIVE) Alcohol, Quantitative (0-10) mg/dl 09/29/17 09/29/17 09/29/17 Range/Units 16:47 16:47 16:47 WBC 7.7 (4.8-10.8) K/uL RBC 4.60 (3.80-5.20) Mil/uL Hgb 12.9 (11.0-16.0) g/dL Hct 38.8 (34.0-47.0) % MCV 84.2 (81.0-99.0) fL MCH 28.0 (27.0-31.0) pg MCHC 33.3 (33.0-37.0) g/dL RDW 15.1 H (11.5-14.5) % Plt Count 245 (130-400) K/uL MPV 7.5 (7.2-11.7) fL Neut % (Auto) 42.6 L (50.0-75.0) % Lymph % (Auto) 47.1 H (20.0-40.0) % Hart % (Auto) 6.6 (0.0-10.0) % Eos % (Auto) 3.3 (0.0-4.0) % Baso % (Auto) 0.4 (0.0-2.0) % Neut # 3.3 (1.8-7.0) K/uL Lymph # 3.6 (1.0-4.3) K/uL Hart # 0.5 (0.0-0.8) K/uL Eos # 0.3 (0.0-0.7) K/uL Baso # 0.0 (0.0-0.2) K/uL Puncture Site pCO2 (35-45) mm/Hg pO2 (80-100) mm/Hg HCO3 (21-28) mmol/L ABG pH (7.35-7.45) ABG Total CO2 (22-28) mmol/L ABG O2 Saturation (95-98) % ABG Base Excess (-2.0-3.0) mmol/L Mike Test ABG Potassium (3.6-5.2) mmol/L A-a O2 Difference mm/Hg Respiratory Index Glucose (65-105) mg/dl Lactate (0.7-2.1) mmol/L Vent Mode Mechanical Rate FiO2 % Tidal Volume PEEP Sodium 132 (132-148) mmol/L Potassium 3.2 L (3.6-5.2) mmol/L Chloride 100 (98-107) mmol/L Carbon Dioxide 23 (22-30) mmol/L Anion Gap 13 (10-20) BUN 14 (7-17) mg/dL Creatinine 0.8 (0.7-1.2) mg/dL Est GFR ( Amer) > 60 Est GFR (Non-Af Amer) > 60 POC Glucose (mg/dL) (65-110) mg/dL Random Glucose 165 H (65-105) mg/dL Lactic Acid (0.7-2.1) mmol/L Calcium 8.5 L (8.6-10.4) mg/dl Phosphorus (2.5-4.5) mg/dL Magnesium (1.6-2.3) mg/dL Total Bilirubin 0.7 (0.2-1.3) mg/dL AST 56 H (14-36) U/L ALT 89 H D (9-52) U/L Alkaline Phosphatase 159 H (38-126) U/L Troponin I (0.00-0.120) ng/mL NT-Pro-B Natriuret Pep (0-900) pg/mL Total Protein 7.3 (6.3-8.3) g/dL Albumin 3.8 (3.5-5.0) g/dL Globulin 3.5 (2.2-3.9) gm/dL Albumin/Globulin Ratio 1.1 (1.0-2.1) Arterial Blood Potassium (3.6-5.2) mmol/L Salicylates < 1.0 mg/dL 1 Urine Opiates Screen (NEGATIVE) Urine Methadone Screen (NEGATIVE) Acetaminophen < 10.0 L (10.0-30.0) ug/mL Ur Barbiturates Screen (NEGATIVE) Ur Phencyclidine Scrn (NEGATIVE) Ur Amphetamines Screen (NEGATIVE) U Benzodiazepines Scrn (NEGATIVE) U Oth Cocaine Metabols (NEGATIVE) U Cannabinoids Screen (NEGATIVE) Alcohol, Quantitative < 10 (0-10) mg/dl 09/29/17 Range/Units 16:18 WBC (4.8-10.8) K/uL RBC (3.80-5.20) Mil/uL Hgb (11.0-16.0) g/dL Hct (34.0-47.0) % MCV (81.0-99.0) fL MCH (27.0-31.0) pg MCHC (33.0-37.0) g/dL RDW (11.5-14.5) % Plt Count (130-400) K/uL MPV (7.2-11.7) fL Neut % (Auto) (50.0-75.0) % Lymph % (Auto) (20.0-40.0) % Hart % (Auto) (0.0-10.0) % Eos % (Auto) (0.0-4.0) % Baso % (Auto) (0.0-2.0) % Neut # (1.8-7.0) K/uL Lymph # (1.0-4.3) K/uL Hart # (0.0-0.8) K/uL Eos # (0.0-0.7) K/uL Baso # (0.0-0.2) K/uL Puncture Site pCO2 (35-45) mm/Hg pO2 (80-100) mm/Hg HCO3 (21-28) mmol/L ABG pH (7.35-7.45) ABG Total CO2 (22-28) mmol/L ABG O2 Saturation (95-98) % ABG Base Excess (-2.0-3.0) mmol/L Mike Test ABG Potassium (3.6-5.2) mmol/L A-a O2 Difference mm/Hg Respiratory Index Glucose (65-105) mg/dl Lactate (0.7-2.1) mmol/L Vent Mode Mechanical Rate FiO2 % Tidal Volume PEEP Sodium (132-148) mmol/L Potassium (3.6-5.2) mmol/L Chloride (98-107) mmol/L Carbon Dioxide (22-30) mmol/L Anion Gap (10-20) BUN (7-17) mg/dL Creatinine (0.7-1.2) mg/dL Est GFR ( Amer) Est GFR (Non-Af Amer) POC Glucose (mg/dL) 204 H (65-110) mg/dL Random Glucose (65-105) mg/dL Lactic Acid (0.7-2.1) mmol/L Calcium (8.6-10.4) mg/dl Phosphorus (2.5-4.5) mg/dL Magnesium (1.6-2.3) mg/dL Total Bilirubin (0.2-1.3) mg/dL AST (14-36) U/L ALT (9-52) U/L Alkaline Phosphatase (38-126) U/L Troponin I (0.00-0.120) ng/mL NT-Pro-B Natriuret Pep (0-900) pg/mL Total Protein (6.3-8.3) g/dL Albumin (3.5-5.0) g/dL Globulin (2.2-3.9) gm/dL Albumin/Globulin Ratio (1.0-2.1) Arterial Blood Potassium (3.6-5.2) mmol/L Salicylates mg/dL 1 Urine Opiates Screen (NEGATIVE) Urine Methadone Screen (NEGATIVE) Acetaminophen (10.0-30.0) ug/mL Ur Barbiturates Screen (NEGATIVE) Ur Phencyclidine Scrn (NEGATIVE) Ur Amphetamines Screen (NEGATIVE) U Benzodiazepines Scrn (NEGATIVE) U Oth Cocaine Metabols (NEGATIVE) U Cannabinoids Screen (NEGATIVE) Alcohol, Quantitative (0-10) mg/dl Laboratory Results - last 24 hr 09/29/17 09/29/17 09/29/17 16:18 16:47 16:47 WBC 7.7 RBC 4.60 Hgb 12.9 Hct 38.8 MCV 84.2 MCH 28.0 MCHC 33.3 RDW 15.1 H Plt Count 245 MPV 7.5 Neut % (Auto) 42.6 L Lymph % (Auto) 47.1 H Hart % (Auto) 6.6 Eos % (Auto) 3.3 Baso % (Auto) 0.4 Neut # 3.3 Lymph # 3.6 Hart # 0.5 Eos # 0.3 Baso # 0.0 Puncture Site pCO2 pO2 HCO3 ABG pH ABG Total CO2 ABG O2 Saturation ABG Base Excess Mike Test ABG Potassium A-a O2 Difference Respiratory Index Glucose Lactate Vent Mode Mechanical Rate FiO2 Tidal Volume PEEP Sodium 132 Potassium 3.2 L Chloride 100 Carbon Dioxide 23 Anion Gap 13 BUN 14 Creatinine 0.8 Est GFR ( Amer) > 60 Est GFR (Non-Af Amer) > 60 POC Glucose (mg/dL) 204 H Random Glucose 165 H Lactic Acid Calcium 8.5 L Phosphorus Magnesium Total Bilirubin 0.7 AST 56 H ALT 89 H D Alkaline Phosphatase 159 H Troponin I NT-Pro-B Natriuret Pep Total Protein 7.3 Albumin 3.8 Globulin 3.5 Albumin/Globulin Ratio 1.1 Arterial Blood Potassium Salicylates Urine Opiates Screen Urine Methadone Screen Acetaminophen Ur Barbiturates Screen Ur Phencyclidine Scrn Ur Amphetamines Screen U Benzodiazepines Scrn U Oth Cocaine Metabols U Cannabinoids Screen Alcohol, Quantitative < 10 09/29/17 09/29/17 09/29/17 16:47 18:00 19:52 WBC RBC Hgb Hct MCV MCH MCHC RDW Plt Count MPV Neut % (Auto) Lymph % (Auto) Hart % (Auto) Eos % (Auto) Baso % (Auto) Neut # Lymph # Hart # Eos # Baso # Puncture Site Rra pCO2 43 pO2 193 H HCO3 24.0 ABG pH 7.36 ABG Total CO2 25.6 ABG O2 Saturation 98.8 H ABG Base Excess -1.3 Mike Test Yes ABG Potassium 2.7 L A-a O2 Difference 324.0 Respiratory Index 1.7 Glucose 120 H Lactate 1.3 Vent Mode Prvc Mechanical Rate 18 FiO2 80.0 Tidal Volume 450 PEEP 5 Sodium 141.0 Potassium Chloride 111.0 H Carbon Dioxide Anion Gap BUN Creatinine Est GFR ( Amer) Est GFR (Non-Af Amer) POC Glucose (mg/dL) Random Glucose Lactic Acid Calcium Phosphorus Magnesium Total Bilirubin AST ALT Alkaline Phosphatase Troponin I NT-Pro-B Natriuret Pep Total Protein Albumin Globulin Albumin/Globulin Ratio Arterial Blood Potassium 2.7 L Salicylates < 1.0 Urine Opiates Screen Positive H Urine Methadone Screen Negative Acetaminophen < 10.0 L Ur Barbiturates Screen Positive H Ur Phencyclidine Scrn Negative Ur Amphetamines Screen Negative U Benzodiazepines Scrn Positive U Oth Cocaine Metabols Negative U Cannabinoids Screen Negative Alcohol, Quantitative 09/29/17 09/29/17 09/30/17 19:52 19:52 00:11 WBC RBC Hgb Hct MCV MCH MCHC RDW Plt Count MPV Neut % (Auto) Lymph % (Auto) Hart % (Auto) Eos % (Auto) Baso % (Auto) Neut # Lymph # Hart # Eos # Baso # Puncture Site pCO2 pO2 HCO3 ABG pH ABG Total CO2 ABG O2 Saturation ABG Base Excess Mike Test ABG Potassium A-a O2 Difference Respiratory Index Glucose Lactate Vent Mode Mechanical Rate FiO2 Tidal Volume PEEP Sodium Potassium Chloride Carbon Dioxide Anion Gap BUN Creatinine Est GFR ( Amer) Est GFR (Non-Af Amer) POC Glucose (mg/dL) 188 H Random Glucose Lactic Acid 1.0 Calcium Phosphorus 3.9 Magnesium 1.5 L Total Bilirubin AST ALT Alkaline Phosphatase Troponin I 0.0130 NT-Pro-B Natriuret Pep 49.0 Total Protein Albumin Globulin Albumin/Globulin Ratio Arterial Blood Potassium Salicylates Urine Opiates Screen Urine Methadone Screen Acetaminophen Ur Barbiturates Screen Ur Phencyclidine Scrn Ur Amphetamines Screen U Benzodiazepines Scrn U Oth Cocaine Metabols U Cannabinoids Screen Alcohol, Quantitative 09/30/17 09/30/17 09/30/17 06:02 06:11 06:11 WBC 9.7 RBC 4.45 Hgb 12.8 Hct 37.1 MCV 83.4 MCH 28.7 MCHC 34.5 RDW 14.7 H Plt Count 225 MPV 7.4 Neut % (Auto) 70.6 Lymph % (Auto) 21.9 Hart % (Auto) 6.0 Eos % (Auto) 1.0 Baso % (Auto) 0.5 Neut # 6.8 Lymph # 2.1 Hart # 0.6 Eos # 0.1 Baso # 0.0 Puncture Site pCO2 pO2 HCO3 ABG pH ABG Total CO2 ABG O2 Saturation ABG Base Excess Mike Test ABG Potassium A-a O2 Difference Respiratory Index Glucose Lactate Vent Mode Mechanical Rate FiO2 Tidal Volume PEEP Sodium 135 Potassium 4.2 Chloride 103 Carbon Dioxide 24 Anion Gap 12 BUN 8 Creatinine 0.5 L Est GFR ( Amer) > 60 Est GFR (Non-Af Amer) > 60 POC Glucose (mg/dL) 251 H Random Glucose 265 H Lactic Acid Calcium 8.1 L Phosphorus 2.9 Magnesium 1.8 Total Bilirubin 0.9 AST 43 H D ALT 76 H Alkaline Phosphatase 175 H Troponin I NT-Pro-B Natriuret Pep Total Protein 6.9 Albumin 3.5 Globulin 3.4 Albumin/Globulin Ratio 1.0 Arterial Blood Potassium Salicylates Urine Opiates Screen Urine Methadone Screen Acetaminophen Ur Barbiturates Screen Ur Phencyclidine Scrn Ur Amphetamines Screen U Benzodiazepines Scrn U Oth Cocaine Metabols U Cannabinoids Screen Alcohol, Quantitative 09/30/17 11:44 WBC RBC Hgb Hct MCV MCH MCHC RDW Plt Count MPV Neut % (Auto) Lymph % (Auto) Hart % (Auto) Eos % (Auto) Baso % (Auto) Neut # Lymph # Hart # Eos # Baso # Puncture Site pCO2 pO2 HCO3 ABG pH ABG Total CO2 ABG O2 Saturation ABG Base Excess Mike Test ABG Potassium A-a O2 Difference Respiratory Index Glucose Lactate Vent Mode Mechanical Rate FiO2 Tidal Volume PEEP Sodium Potassium Chloride Carbon Dioxide Anion Gap BUN Creatinine Est GFR ( Amer) Est GFR (Non-Af Amer) POC Glucose (mg/dL) 397 H Random Glucose Lactic Acid Calcium Phosphorus Magnesium Total Bilirubin AST ALT Alkaline Phosphatase Troponin I NT-Pro-B Natriuret Pep Total Protein Albumin Globulin Albumin/Globulin Ratio Arterial Blood Potassium Salicylates Urine Opiates Screen Urine Methadone Screen Acetaminophen Ur Barbiturates Screen Ur Phencyclidine Scrn Ur Amphetamines Screen U Benzodiazepines Scrn U Oth Cocaine Metabols U Cannabinoids Screen Alcohol, Quantitative EKG/Cardiology Studies: Cardiology / EKG Studies 09/29/17 16:22 ELECTROCARDIOGRAM Stat Comment: Mode Of Transportation: BED Reason For Exam: Overdose 09/29/17 17:03 EKG [ELECTROCARDIOGRAM] Stat Comment: Mode Of Transportation: PORTABLE Reason For Exam: eval LVH Fingerstick Blood Sugar Results: 397 Review of Systems - Review of Systems All systems: reviewed and no additional remarkable complaints except (as per HPI ) Critical Care Progress Note - Nutrition Nutrition: Nutrition Category Date Time Status Consistent Carbohydrate [DIET] Diets 09/30/17 Dinner Active Assessment/Plan - Assessment and Plan (Free Text) Assessment: 62 yo female with PMH of chronic pain, fibromyalgia on 10mg percocet 4xdaily, xanax 2 mg 2x daily, topamax and gabapentin unknown dosage, present to [facility] from her doctor office with respiratory arrest unresponsive to narcan. Pt was successfully extubated early this am 09/30/17. Plan: Neuro: AMS Neurologically intact A&Ox3 Extubated 09/30/17 early AM UDS: 09/29/17 + for opiates and barbiturates CT head w/out contrast: 09/29/17 no acute intracranial pathology Oxycodone screen result pending Cardio BP:123/81 09/29/17 troponin 0.013, ProBNP 49 09/29/17 EKG: NSR, non specific T-wave abnormality Respiratory O2 sat: 100% room air 09/29/17 AB.36/43/193/24 09/29/17 Cxray: Duoned 3ml INH RQ6 AMISH Msk: hx of chronic pain Start acetaminophen 650 mg PO Q6 PRn for moderate pain Renal I: 889.1 ml IV, 50 ml oral O: 950 ml urine 24H Balance: - 10.9 09/29/17 BUN/Cr: 14/0.08 Fluids, electrolytes, nutrition Electrolytes 09/30/17 pending Fluids: Discontinue IV fluid, Nutrition: Start patient on regular diet Infectious disease Tcurrent: 100.9 , WBC: 9.7 09/29/17 Lactic acid 1.0 09/29/17 Discontinued: vancomycin, flaggy, aztreonam Hematology H&H: 12.8/37.1 Plt: 225 GI Constipation, continue dulcolax 09/29/17 AST/ALT/ Alphos: 56/89/159, Tbili: 0.7 Endocrine: Hx diabetes, POC glucose 188 Start sliding scale insulin novolin R Prophylaxis GI: not indicated DVT: not indicated Out of bed ambulation, PT/OT eval <Nunu Castaneda M - Last Filed: 09/30/17 17:22> CCU Objective - Vital Signs / Intake & Output Vital Signs (Last 4 hours): Vital Signs Pulse Resp 09/30/17 15:00 118 H 18 09/30/17 14:00 130 H 30 H Intake and Output (Last 8hrs): Intake & Output 09/30/17 09/30/17 09/30/17 06:59 14:59 22:59 Intake Total 268.7 370 Output Total 650 175 Balance -381.3 195 Weight 222 lb 8 oz Intake: Intake, IV Amount 218.7 30 LEFT ANTECUBITAL 2ND PORT 100 Left Antecubital 100 10 Right Forearm 10 Right Upper arm 18.7 10 Oral 50 340 Output: Urine 650 175 Urethral (Rangel) 650 125 Urine, Voided 50 Stool 0 Other: # Voids Urine, Voided 1 # Bowel Movements 0 1 - Patient Studies Lab Studies: Lab Studies 09/30/17 09/30/17 09/30/17 Range/Units 11:44 06:11 06:11 WBC 9.7 (4.8-10.8) K/uL RBC 4.45 (3.80-5.20) Mil/uL Hgb 12.8 (11.0-16.0) g/dL Hct 37.1 (34.0-47.0) % MCV 83.4 (81.0-99.0) fL MCH 28.7 (27.0-31.0) pg MCHC 34.5 (33.0-37.0) g/dL RDW 14.7 H (11.5-14.5) % Plt Count 225 (130-400) K/uL MPV 7.4 (7.2-11.7) fL Neut % (Auto) 70.6 (50.0-75.0) % Lymph % (Auto) 21.9 (20.0-40.0) % Hart % (Auto) 6.0 (0.0-10.0) % Eos % (Auto) 1.0 (0.0-4.0) % Baso % (Auto) 0.5 (0.0-2.0) % Neut # 6.8 (1.8-7.0) K/uL Lymph # 2.1 (1.0-4.3) K/uL Hart # 0.6 (0.0-0.8) K/uL Eos # 0.1 (0.0-0.7) K/uL Baso # 0.0 (0.0-0.2) K/uL Puncture Site pCO2 (35-45) mm/Hg pO2 (80-100) mm/Hg HCO3 (21-28) mmol/L ABG pH (7.35-7.45) ABG Total CO2 (22-28) mmol/L ABG O2 Saturation (95-98) % ABG Base Excess (-2.0-3.0) mmol/L Mike Test ABG Potassium (3.6-5.2) mmol/L A-a O2 Difference mm/Hg Respiratory Index Glucose (65-105) mg/dl Lactate (0.7-2.1) mmol/L Vent Mode Mechanical Rate FiO2 % Tidal Volume PEEP Sodium 135 (132-148) mmol/L Potassium 4.2 (3.6-5.2) mmol/L Chloride 103 (98-107) mmol/L Carbon Dioxide 24 (22-30) mmol/L Anion Gap 12 (10-20) BUN 8 (7-17) mg/dL Creatinine 0.5 L (0.7-1.2) mg/dL Est GFR ( Amer) > 60 Est GFR (Non-Af Amer) > 60 POC Glucose (mg/dL) 397 H (65-110) mg/dL Random Glucose 265 H (65-105) mg/dL Lactic Acid (0.7-2.1) mmol/L Calcium 8.1 L (8.6-10.4) mg/dl Phosphorus 2.9 (2.5-4.5) mg/dL Magnesium 1.8 (1.6-2.3) mg/dL Total Bilirubin 0.9 (0.2-1.3) mg/dL AST 43 H D (14-36) U/L ALT 76 H (9-52) U/L Alkaline Phosphatase 175 H (38-126) U/L Troponin I (0.00-0.120) ng/mL NT-Pro-B Natriuret Pep (0-900) pg/mL Total Protein 6.9 (6.3-8.3) g/dL Albumin 3.5 (3.5-5.0) g/dL Globulin 3.4 (2.2-3.9) gm/dL Albumin/Globulin Ratio 1.0 (1.0-2.1) Arterial Blood Potassium (3.6-5.2) mmol/L Salicylates mg/dL 1 Urine Opiates Screen (NEGATIVE) Urine Methadone Screen (NEGATIVE) Acetaminophen (10.0-30.0) ug/mL Ur Barbiturates Screen (NEGATIVE) Ur Phencyclidine Scrn (NEGATIVE) Ur Amphetamines Screen (NEGATIVE) U Benzodiazepines Scrn (NEGATIVE) U Oth Cocaine Metabols (NEGATIVE) U Cannabinoids Screen (NEGATIVE) Alcohol, Quantitative (0-10) mg/dl 09/30/17 09/30/17 09/29/17 Range/Units 06:02 00:11 19:52 WBC (4.8-10.8) K/uL RBC (3.80-5.20) Mil/uL Hgb (11.0-16.0) g/dL Hct (34.0-47.0) % MCV (81.0-99.0) fL MCH (27.0-31.0) pg MCHC (33.0-37.0) g/dL RDW (11.5-14.5) % Plt Count (130-400) K/uL MPV (7.2-11.7) fL Neut % (Auto) (50.0-75.0) % Lymph % (Auto) (20.0-40.0) % Hart % (Auto) (0.0-10.0) % Eos % (Auto) (0.0-4.0) % Baso % (Auto) (0.0-2.0) % Neut # (1.8-7.0) K/uL Lymph # (1.0-4.3) K/uL Hart # (0.0-0.8) K/uL Eos # (0.0-0.7) K/uL Baso # (0.0-0.2) K/uL Puncture Site pCO2 (35-45) mm/Hg pO2 (80-100) mm/Hg HCO3 (21-28) mmol/L ABG pH (7.35-7.45) ABG Total CO2 (22-28) mmol/L ABG O2 Saturation (95-98) % ABG Base Excess (-2.0-3.0) mmol/L Mike Test ABG Potassium (3.6-5.2) mmol/L A-a O2 Difference mm/Hg Respiratory Index Glucose (65-105) mg/dl Lactate (0.7-2.1) mmol/L Vent Mode Mechanical Rate FiO2 % Tidal Volume PEEP Sodium (132-148) mmol/L Potassium (3.6-5.2) mmol/L Chloride (98-107) mmol/L Carbon Dioxide (22-30) mmol/L Anion Gap (10-20) BUN (7-17) mg/dL Creatinine (0.7-1.2) mg/dL Est GFR ( Amer) Est GFR (Non-Af Amer) POC Glucose (mg/dL) 251 H 188 H (65-110) mg/dL Random Glucose (65-105) mg/dL Lactic Acid 1.0 (0.7-2.1) mmol/L Calcium (8.6-10.4) mg/dl Phosphorus (2.5-4.5) mg/dL Magnesium (1.6-2.3) mg/dL Total Bilirubin (0.2-1.3) mg/dL AST (14-36) U/L ALT (9-52) U/L Alkaline Phosphatase (38-126) U/L Troponin I (0.00-0.120) ng/mL NT-Pro-B Natriuret Pep (0-900) pg/mL Total Protein (6.3-8.3) g/dL Albumin (3.5-5.0) g/dL Globulin (2.2-3.9) gm/dL Albumin/Globulin Ratio (1.0-2.1) Arterial Blood Potassium (3.6-5.2) mmol/L Salicylates mg/dL 1 Urine Opiates Screen (NEGATIVE) Urine Methadone Screen (NEGATIVE) Acetaminophen (10.0-30.0) ug/mL Ur Barbiturates Screen (NEGATIVE) Ur Phencyclidine Scrn (NEGATIVE) Ur Amphetamines Screen (NEGATIVE) U Benzodiazepines Scrn (NEGATIVE) U Oth Cocaine Metabols (NEGATIVE) U Cannabinoids Screen (NEGATIVE) Alcohol, Quantitative (0-10) mg/dl 09/29/17 09/29/17 09/29/17 Range/Units 19:52 19:52 18:00 WBC (4.8-10.8) K/uL RBC (3.80-5.20) Mil/uL Hgb (11.0-16.0) g/dL Hct (34.0-47.0) % MCV (81.0-99.0) fL MCH (27.0-31.0) pg MCHC (33.0-37.0) g/dL RDW (11.5-14.5) % Plt Count (130-400) K/uL MPV (7.2-11.7) fL Neut % (Auto) (50.0-75.0) % Lymph % (Auto) (20.0-40.0) % Hart % (Auto) (0.0-10.0) % Eos % (Auto) (0.0-4.0) % Baso % (Auto) (0.0-2.0) % Neut # (1.8-7.0) K/uL Lymph # (1.0-4.3) K/uL Hart # (0.0-0.8) K/uL Eos # (0.0-0.7) K/uL Baso # (0.0-0.2) K/uL Puncture Site Rra pCO2 43 (35-45) mm/Hg pO2 193 H (80-100) mm/Hg HCO3 24.0 (21-28) mmol/L ABG pH 7.36 (7.35-7.45) ABG Total CO2 25.6 (22-28) mmol/L ABG O2 Saturation 98.8 H (95-98) % ABG Base Excess -1.3 (-2.0-3.0) mmol/L Mike Test Yes ABG Potassium 2.7 L (3.6-5.2) mmol/L A-a O2 Difference 324.0 mm/Hg Respiratory Index 1.7 Glucose 120 H (65-105) mg/dl Lactate 1.3 (0.7-2.1) mmol/L Vent Mode Prvc Mechanical Rate 18 FiO2 80.0 % Tidal Volume 450 PEEP 5 Sodium 141.0 (132-148) mmol/L Potassium (3.6-5.2) mmol/L Chloride 111.0 H (98-107) mmol/L Carbon Dioxide (22-30) mmol/L Anion Gap (10-20) BUN (7-17) mg/dL Creatinine (0.7-1.2) mg/dL Est GFR ( Amer) Est GFR (Non-Af Amer) POC Glucose (mg/dL) (65-110) mg/dL Random Glucose (65-105) mg/dL Lactic Acid (0.7-2.1) mmol/L Calcium (8.6-10.4) mg/dl Phosphorus 3.9 (2.5-4.5) mg/dL Magnesium 1.5 L (1.6-2.3) mg/dL Total Bilirubin (0.2-1.3) mg/dL AST (14-36) U/L ALT (9-52) U/L Alkaline Phosphatase (38-126) U/L Troponin I 0.0130 (0.00-0.120) ng/mL NT-Pro-B Natriuret Pep 49.0 (0-900) pg/mL Total Protein (6.3-8.3) g/dL Albumin (3.5-5.0) g/dL Globulin (2.2-3.9) gm/dL Albumin/Globulin Ratio (1.0-2.1) Arterial Blood Potassium 2.7 L (3.6-5.2) mmol/L Salicylates mg/dL 1 Urine Opiates Screen Positive H (NEGATIVE) Urine Methadone Screen Negative (NEGATIVE) Acetaminophen (10.0-30.0) ug/mL Ur Barbiturates Screen Positive H (NEGATIVE) Ur Phencyclidine Scrn Negative (NEGATIVE) Ur Amphetamines Screen Negative (NEGATIVE) U Benzodiazepines Scrn Positive (NEGATIVE) U Oth Cocaine Metabols Negative (NEGATIVE) U Cannabinoids Screen Negative (NEGATIVE) Alcohol, Quantitative (0-10) mg/dl 09/29/17 09/29/17 Range/Units 16:47 16:47 WBC (4.8-10.8) K/uL RBC (3.80-5.20) Mil/uL Hgb (11.0-16.0) g/dL Hct (34.0-47.0) % MCV (81.0-99.0) fL MCH (27.0-31.0) pg MCHC (33.0-37.0) g/dL RDW (11.5-14.5) % Plt Count (130-400) K/uL MPV (7.2-11.7) fL Neut % (Auto) (50.0-75.0) % Lymph % (Auto) (20.0-40.0) % Hart % (Auto) (0.0-10.0) % Eos % (Auto) (0.0-4.0) % Baso % (Auto) (0.0-2.0) % Neut # (1.8-7.0) K/uL Lymph # (1.0-4.3) K/uL Hart # (0.0-0.8) K/uL Eos # (0.0-0.7) K/uL Baso # (0.0-0.2) K/uL Puncture Site pCO2 (35-45) mm/Hg pO2 (80-100) mm/Hg HCO3 (21-28) mmol/L ABG pH (7.35-7.45) ABG Total CO2 (22-28) mmol/L ABG O2 Saturation (95-98) % ABG Base Excess (-2.0-3.0) mmol/L Mike Test ABG Potassium (3.6-5.2) mmol/L A-a O2 Difference mm/Hg Respiratory Index Glucose (65-105) mg/dl Lactate (0.7-2.1) mmol/L Vent Mode Mechanical Rate FiO2 % Tidal Volume PEEP Sodium 132 (132-148) mmol/L Potassium 3.2 L (3.6-5.2) mmol/L Chloride 100 (98-107) mmol/L Carbon Dioxide 23 (22-30) mmol/L Anion Gap 13 (10-20) BUN 14 (7-17) mg/dL Creatinine 0.8 (0.7-1.2) mg/dL Est GFR ( Amer) > 60 Est GFR (Non-Af Amer) > 60 POC Glucose (mg/dL) (65-110) mg/dL Random Glucose 165 H (65-105) mg/dL Lactic Acid (0.7-2.1) mmol/L Calcium 8.5 L (8.6-10.4) mg/dl Phosphorus (2.5-4.5) mg/dL Magnesium (1.6-2.3) mg/dL Total Bilirubin 0.7 (0.2-1.3) mg/dL AST 56 H (14-36) U/L ALT 89 H D (9-52) U/L Alkaline Phosphatase 159 H (38-126) U/L Troponin I (0.00-0.120) ng/mL NT-Pro-B Natriuret Pep (0-900) pg/mL Total Protein 7.3 (6.3-8.3) g/dL Albumin 3.8 (3.5-5.0) g/dL Globulin 3.5 (2.2-3.9) gm/dL Albumin/Globulin Ratio 1.1 (1.0-2.1) Arterial Blood Potassium (3.6-5.2) mmol/L Salicylates < 1.0 mg/dL 1 Urine Opiates Screen (NEGATIVE) Urine Methadone Screen (NEGATIVE) Acetaminophen < 10.0 L (10.0-30.0) ug/mL Ur Barbiturates Screen (NEGATIVE) Ur Phencyclidine Scrn (NEGATIVE) Ur Amphetamines Screen (NEGATIVE) U Benzodiazepines Scrn (NEGATIVE) U Oth Cocaine Metabols (NEGATIVE) U Cannabinoids Screen (NEGATIVE) Alcohol, Quantitative < 10 (0-10) mg/dl Laboratory Results - last 24 hr 09/29/17 09/29/17 09/29/17 16:47 16:47 18:00 WBC RBC Hgb Hct MCV MCH MCHC RDW Plt Count MPV Neut % (Auto) Lymph % (Auto) Hart % (Auto) Eos % (Auto) Baso % (Auto) Neut # Lymph # Hart # Eos # Baso # Puncture Site Rra pCO2 43 pO2 193 H HCO3 24.0 ABG pH 7.36 ABG Total CO2 25.6 ABG O2 Saturation 98.8 H ABG Base Excess -1.3 Mike Test Yes ABG Potassium 2.7 L A-a O2 Difference 324.0 Respiratory Index 1.7 Glucose 120 H Lactate 1.3 Vent Mode Prvc Mechanical Rate 18 FiO2 80.0 Tidal Volume 450 PEEP 5 Sodium 132 141.0 Potassium 3.2 L Chloride 100 111.0 H Carbon Dioxide 23 Anion Gap 13 BUN 14 Creatinine 0.8 Est GFR ( Amer) > 60 Est GFR (Non-Af Amer) > 60 POC Glucose (mg/dL) Random Glucose 165 H Lactic Acid Calcium 8.5 L Phosphorus Magnesium Total Bilirubin 0.7 AST 56 H ALT 89 H D Alkaline Phosphatase 159 H Troponin I NT-Pro-B Natriuret Pep Total Protein 7.3 Albumin 3.8 Globulin 3.5 Albumin/Globulin Ratio 1.1 Arterial Blood Potassium 2.7 L Salicylates < 1.0 Urine Opiates Screen Urine Methadone Screen Acetaminophen < 10.0 L Ur Barbiturates Screen Ur Phencyclidine Scrn Ur Amphetamines Screen U Benzodiazepines Scrn U Oth Cocaine Metabols U Cannabinoids Screen Alcohol, Quantitative < 10 09/29/17 09/29/17 09/29/17 19:52 19:52 19:52 WBC RBC Hgb Hct MCV MCH MCHC RDW Plt Count MPV Neut % (Auto) Lymph % (Auto) Hart % (Auto) Eos % (Auto) Baso % (Auto) Neut # Lymph # Hart # Eos # Baso # Puncture Site pCO2 pO2 HCO3 ABG pH ABG Total CO2 ABG O2 Saturation ABG Base Excess Mike Test ABG Potassium A-a O2 Difference Respiratory Index Glucose Lactate Vent Mode Mechanical Rate FiO2 Tidal Volume PEEP Sodium Potassium Chloride Carbon Dioxide Anion Gap BUN Creatinine Est GFR ( Amer) Est GFR (Non-Af Amer) POC Glucose (mg/dL) Random Glucose Lactic Acid 1.0 Calcium Phosphorus 3.9 Magnesium 1.5 L Total Bilirubin AST ALT Alkaline Phosphatase Troponin I 0.0130 NT-Pro-B Natriuret Pep 49.0 Total Protein Albumin Globulin Albumin/Globulin Ratio Arterial Blood Potassium Salicylates Urine Opiates Screen Positive H Urine Methadone Screen Negative Acetaminophen Ur Barbiturates Screen Positive H Ur Phencyclidine Scrn Negative Ur Amphetamines Screen Negative U Benzodiazepines Scrn Positive U Oth Cocaine Metabols Negative U Cannabinoids Screen Negative Alcohol, Quantitative 09/30/17 09/30/17 09/30/17 00:11 06:02 06:11 WBC 9.7 RBC 4.45 Hgb 12.8 Hct 37.1 MCV 83.4 MCH 28.7 MCHC 34.5 RDW 14.7 H Plt Count 225 MPV 7.4 Neut % (Auto) 70.6 Lymph % (Auto) 21.9 Hart % (Auto) 6.0 Eos % (Auto) 1.0 Baso % (Auto) 0.5 Neut # 6.8 Lymph # 2.1 Hart # 0.6 Eos # 0.1 Baso # 0.0 Puncture Site pCO2 pO2 HCO3 ABG pH ABG Total CO2 ABG O2 Saturation ABG Base Excess Mike Test ABG Potassium A-a O2 Difference Respiratory Index Glucose Lactate Vent Mode Mechanical Rate FiO2 Tidal Volume PEEP Sodium Potassium Chloride Carbon Dioxide Anion Gap BUN Creatinine Est GFR ( Amer) Est GFR (Non-Af Amer) POC Glucose (mg/dL) 188 H 251 H Random Glucose Lactic Acid Calcium Phosphorus Magnesium Total Bilirubin AST ALT Alkaline Phosphatase Troponin I NT-Pro-B Natriuret Pep Total Protein Albumin Globulin Albumin/Globulin Ratio Arterial Blood Potassium Salicylates Urine Opiates Screen Urine Methadone Screen Acetaminophen Ur Barbiturates Screen Ur Phencyclidine Scrn Ur Amphetamines Screen U Benzodiazepines Scrn U Oth Cocaine Metabols U Cannabinoids Screen Alcohol, Quantitative 09/30/17 09/30/17 06:11 11:44 WBC RBC Hgb Hct MCV MCH MCHC RDW Plt Count MPV Neut % (Auto) Lymph % (Auto) Hart % (Auto) Eos % (Auto) Baso % (Auto) Neut # Lymph # Hart # Eos # Baso # Puncture Site pCO2 pO2 HCO3 ABG pH ABG Total CO2 ABG O2 Saturation ABG Base Excess Mike Test ABG Potassium A-a O2 Difference Respiratory Index Glucose Lactate Vent Mode Mechanical Rate FiO2 Tidal Volume PEEP Sodium 135 Potassium 4.2 Chloride 103 Carbon Dioxide 24 Anion Gap 12 BUN 8 Creatinine 0.5 L Est GFR ( Amer) > 60 Est GFR (Non-Af Amer) > 60 POC Glucose (mg/dL) 397 H Random Glucose 265 H Lactic Acid Calcium 8.1 L Phosphorus 2.9 Magnesium 1.8 Total Bilirubin 0.9 AST 43 H D ALT 76 H Alkaline Phosphatase 175 H Troponin I NT-Pro-B Natriuret Pep Total Protein 6.9 Albumin 3.5 Globulin 3.4 Albumin/Globulin Ratio 1.0 Arterial Blood Potassium Salicylates Urine Opiates Screen Urine Methadone Screen Acetaminophen Ur Barbiturates Screen Ur Phencyclidine Scrn Ur Amphetamines Screen U Benzodiazepines Scrn U Oth Cocaine Metabols U Cannabinoids Screen Alcohol, Quantitative EKG/Cardiology Studies: Cardiology / EKG Studies 09/29/17 17:03 EKG [ELECTROCARDIOGRAM] Stat Comment: Mode Of Transportation: PORTABLE Reason For Exam: eval [facility] Progress Note - Nutrition Nutrition: Nutrition Category Date Time Status Consistent Carbohydrate [DIET] Diets 09/30/17 Dinner Active Assessment/Plan (1) Respiratory failure with hypoxia and hypercapnia Status: Acute (2) Altered mental status Status: Acute
[2017-09-30 15:24] VITALS: BP 124/60; PULSE 118; RESP 18
[2017-09-30 16:14] VITALS: O2SAT 98
[2017-09-30] MEDS ORDERED: (Novolog) Insulin Aspart, Recombinant 100 u/ml 10 ml vial SC SCH (16:30)
[2017-09-30] MEDS ORDERED: (Lantus) Insulin Glargine, Recombinant SC SCH (18:00)
--- NOTE | 2017-09-30 23:20 | CP.PCM.DIS ---
Provider - Provider Date of Admission: 09/29/17 17:05 Attending physician: Hugo Fuller MD Time Spent in preparation of Discharge (in minutes): 34 Diagnosis - Discharge Diagnosis (1) Heroin abuse Status: Acute (2) Altered mental status Status: Acute (3) Respiratory failure with hypoxia and hypercapnia Status: Acute Hospital Course - Lab Results Lab Results: Most Recent Lab Values WBC 9.7 K/uL (4.8-10.8) 09/30/17 06:11 RBC 4.45 Mil/uL (3.80-5.20) 09/30/17 06:11 Hgb 12.8 g/dL (11.0-16.0) 09/30/17 06:11 Hct 37.1 % (34.0-47.0) 09/30/17 06:11 MCV 83.4 fL (81.0-99.0) 09/30/17 06:11 MCH 28.7 pg (27.0-31.0) 09/30/17 06:11 MCHC 34.5 g/dL (33.0-37.0) 09/30/17 06:11 RDW 14.7 % (11.5-14.5) H 09/30/17 06:11 Plt Count 225 K/uL (130-400) 09/30/17 06:11 MPV 7.4 fL (7.2-11.7) 09/30/17 06:11 Neut % (Auto) 70.6 % (50.0-75.0) 09/30/17 06:11 Lymph % (Auto) 21.9 % (20.0-40.0) 09/30/17 06:11 Frontier % (Auto) 6.0 % (0.0-10.0) 09/30/17 06:11 Eos % (Auto) 1.0 % (0.0-4.0) 09/30/17 06:11 Baso % (Auto) 0.5 % (0.0-2.0) 09/30/17 06:11 Neut # 6.8 K/uL (1.8-7.0) 09/30/17 06:11 Lymph # 2.1 K/uL (1.0-4.3) 09/30/17 06:11 Frontier # 0.6 K/uL (0.0-0.8) 09/30/17 06:11 Eos # 0.1 K/uL (0.0-0.7) 09/30/17 06:11 Baso # 0.0 K/uL (0.0-0.2) 09/30/17 06:11 Puncture Site Rra 09/29/17 18:00 pCO2 43 mm/Hg (35-45) 09/29/17 18:00 pO2 193 mm/Hg (80-100) H 09/29/17 18:00 HCO3 24.0 mmol/L (21-28) 09/29/17 18:00 ABG pH 7.36 (7.35-7.45) 09/29/17 18:00 ABG Total CO2 25.6 mmol/L (22-28) 09/29/17 18:00 ABG O2 Saturation 98.8 % (95-98) H 09/29/17 18:00 ABG Base Excess -1.3 mmol/L (-2.0-3.0) 09/29/17 18:00 Mike Test Yes 09/29/17 18:00 ABG Potassium 2.7 mmol/L (3.6-5.2) L 09/29/17 18:00 A-a O2 Difference 324.0 mm/Hg 09/29/17 18:00 Respiratory Index 1.7 09/29/17 18:00 Sodium 141.0 mmol/l (132-148) 09/29/17 18:00 Chloride 111.0 mmol/L (98-107) H 09/29/17 18:00 Glucose 120 mg/dl (65-105) H 09/29/17 18:00 Lactate 1.3 mmol/L (0.7-2.1) 09/29/17 18:00 Vent Mode Prvc 09/29/17 18:00 Mechanical Rate 18 09/29/17 18:00 FiO2 80.0 % 09/29/17 18:00 Tidal Volume 450 09/29/17 18:00 PEEP 5 09/29/17 18:00 Sodium 135 mmol/L (132-148) 09/30/17 06:11 Potassium 4.2 mmol/L (3.6-5.2) 09/30/17 06:11 Chloride 103 mmol/L (98-107) 09/30/17 06:11 Carbon Dioxide 24 mmol/L (22-30) 09/30/17 06:11 Anion Gap 12 (10-20) 09/30/17 06:11 BUN 8 mg/dL (7-17) 09/30/17 06:11 Creatinine 0.5 mg/dL (0.7-1.2) L 09/30/17 06:11 Est GFR ( Amer) > 60 09/30/17 06:11 Est GFR (Non-Af Amer) > 60 09/30/17 06:11 POC Glucose (mg/dL) 397 mg/dL (65-110) H 09/30/17 11:44 Random Glucose 265 mg/dL (65-105) H 09/30/17 06:11 Lactic Acid 1.0 mmol/L (0.7-2.1) 09/29/17 19:52 Calcium 8.1 mg/dl (8.6-10.4) L 09/30/17 06:11 Phosphorus 2.9 mg/dL (2.5-4.5) 09/30/17 06:11 Magnesium 1.8 mg/dL (1.6-2.3) 09/30/17 06:11 Total Bilirubin 0.9 mg/dL (0.2-1.3) 09/30/17 06:11 AST 43 U/L (14-36) H D 09/30/17 06:11 ALT 76 U/L (9-52) H 09/30/17 06:11 Alkaline Phosphatase 175 U/L (38-126) H 09/30/17 06:11 Troponin I 0.0130 ng/mL (0.00-0.120) 09/29/17 19:52 NT-Pro-B Natriuret Pep 49.0 pg/mL (0-900) 09/29/17 19:52 Total Protein 6.9 g/dL (6.3-8.3) 09/30/17 06:11 Albumin 3.5 g/dL (3.5-5.0) 09/30/17 06:11 Globulin 3.4 gm/dL (2.2-3.9) 09/30/17 06:11 Albumin/Globulin Ratio 1.0 (1.0-2.1) 09/30/17 06:11 Arterial Blood Potassium 2.7 mmol/L (3.6-5.2) L 09/29/17 18:00 Salicylates < 1.0 mg/dL 1 09/29/17 16:47 Urine Opiates Screen Positive (NEGATIVE) H 09/29/17 19:52 Urine Methadone Screen Negative (NEGATIVE) 09/29/17 19:52 Acetaminophen < 10.0 ug/mL (10.0-30.0) L 09/29/17 16:47 Ur Barbiturates Screen Positive (NEGATIVE) H 09/29/17 19:52 Ur Phencyclidine Scrn Negative (NEGATIVE) 09/29/17 19:52 Ur Amphetamines Screen Negative (NEGATIVE) 09/29/17 19:52 U Benzodiazepines Scrn Positive (NEGATIVE) 09/29/17 19:52 U Oth Cocaine Metabols Negative (NEGATIVE) 09/29/17 19:52 U Cannabinoids Screen Negative (NEGATIVE) 09/29/17 19:52 Alcohol, Quantitative < 10 mg/dl (0-10) 09/29/17 16:47 - Hospital Course Hospital Course: Pt seen and examined at [facility], is ready to go home and signed out Against medical advice, Restarted patient on her home medicaitons including lantus, HUmalog, meclizine -patient is on chronic pain and takes percocet and xanax for anxietry -Patient walking around tolerated oral diet -Patient remains hemodynamically stable, not requiring pressors Discharge Exam - Head Exam Head Exam: ATRAUMATIC, NORMAL INSPECTION - Eye Exam Eye Exam: EOMI, Normal appearance, PERRL Pupil Exam: NORMAL ACCOMODATION, PERRL - Neurological Exam Neurological exam: Alert, Oriented x3 - Psychiatric Exam Psychiatric exam: Anxious Discharge Plan - Follow Up Plan Condition: GOOD Disposition: AGAINST MEDICAL ADVICE
[2017-10-01] MEDS ORDERED: Pantoprazole 40 mg EC Tab PO SCH (10:00)
== END 2017-09-30 15:35 | disposition left against medical advice (07) | DRG 582 ==
LOC: C.ER 16:08 → C.9E 17:05 → C.9I 19:05
PROVIDERS: ADMIT Internal Medicine; ATTEND Internal Medicine
PROC: 0BH17EZ Insertion of Endotracheal Airway into Trachea, Via Natural or Artificial Opening (ICD-10-PCS; principal; 2017-09-29)
PROC: 5A1945Z Respiratory Ventilation, 24-96 Consecutive Hours (ICD-10-PCS; 2017-09-29)
DX: T40.1X1A Poisoning by heroin, accidental (unintentional), initial encounter (principal); J96.01 Acute respiratory failure with hypoxia; J96.02 Acute respiratory failure with hypercapnia; G89.29 Other chronic pain; R41.82 Altered mental status, unspecified; M79.7 Fibromyalgia